=== PATIENT | male | born 1935 | race Caucasian/White ===

== ENCOUNTER → 2016-07-23 | Outpatient (REF) | payer MEDICARE ==
[2016-07-23 10:18] LABS: ALBUMIN 4.2 g/dL (3.4-5.0); CALCULATED IONIZED CALCIUM 4.2 mg/dL (3.8-4.6); TOTAL PROTEIN 7.3 g/dL (6.4-8.5)
== END ==
LOC: LAB 09:33
PROVIDERS: ATTEND Family Medicine
DX: I10 Essential (primary) hypertension (principal); E11.9 Type 2 diabetes mellitus without complications; Z13.6 Encounter for screening for cardiovascular disorders
CPT/HCPCS: 80053; 80061; 83036